=== PATIENT | female | born 1940 | race Two or more races ===

== ENCOUNTER 2017-11-14 18:41 | Inpatient (IN) | payer OTHER ==
[2017-11-14 20:10] LABS: BASO % 0.5 % (0-2.0); EOS % 0.2 % (0-4.5); LYMPH % 7.6 % (8-40); MCH 29.5 pg (25.7-33.7); MCHC 33.3 g/dl (32.0-36.0); MEAN CELL VOLUME 88.5 fl (80-96); MEAN PLT VOLUME 9.6 fl (7.5-11.1); MONO % 9.7 % (3.8-10.2); PLATELET COUNT 292 K/MM3 (134-434); RBC 4.75 M/mm3 (3.60-5.2); RDW 14.8 % (11.6-15.6); WHITE BLOOD COUNT 14.4 K/mm3 (4.0-10.0)
--- NOTE | 2017-11-14 20:15 | PDOC ---
History of Present Illness <Ivelisse Carbajal - Last Filed: 11/14/17 21:29> - General History Source: Patient Exam Limitations: No Limitations - History of Present Illness Initial Comments: 11/14/17 20:22 The patient is a 77 year old female with past medical history of hypertension, and _ who was brought to the ED by her daughters who presents with complaints of lethargy since this morning. The patients family reports the patient was at baseline yesterday, up walking around and very aware of her surroundings. Today the patient has been bed bound and complains of being very tired. The patients daughter also noticed the patient was having difficulty walking today as well, stating she was unsteady. She denies any fevers, chills, nausea, vomiting, diarrhea, cough, SOB, CP, or any urinary symptoms. The patient denies any focal neurological deficits. Allergies: NKDA PCP: Jo Francisco <Shahrzad Baires - Last Filed: 11/14/17 21:48> - General Chief Complaint: Weakness Stated Complaint: WEAKNESS Time Seen by Provider: 11/14/17 18:53 Past History - Past Medical History COPD: No HTN: Yes Hypercholesterolemia: Yes Other medical history: cataracts - Suicide/Smoking/Psychosocial Hx Smoking History: Never smoked Have you smoked in the past 12 months: No Information on smoking cessation initiated: No Hx Alcohol Use: No Drug/Substance Use Hx: No Substance Use Type: None <Ivelisse Carbajal - Last Filed: 11/14/17 21:29> <Shahrzad Baires - Last Filed: 11/14/17 21:48> - Past Medical History Allergies/Adverse Reactions: Allergies Allergy/AdvReac Type Severity Reaction Status Date / Time No Known Allergies Allergy Verified 11/14/17 19:13 Review of Systems - Review of Systems Able to Perform ROS?: Yes Comments:: 11/14/17 20:22 CONSTITUTIONAL: Present: weakness Absent: fever, chills, diaphoresis, loss of appetite HEENT: Absent: rhinorrhea, nasal congestion, throat pain, throat swelling, difficulty swallowing, mouth swelling, ear pain, eye pain, visual Changes CARDIOVASCULAR: Absent: chest pain, syncope, palpitations, irregular heart rate, lightheadedness , peripheral edema RESPIRATORY: Absent: cough, shortness of breath, dyspnea with exertion, orthopnea, wheezing, stridor, hemoptysis GASTROINTESTINAL: Absent: abdominal pain, abdominal distension, nausea, vomiting, diarrhea, constipation, melena, hematochezia GENITOURINARY: Absent: dysuria, frequency, urgency, hesitancy, hematuria, flank pain, genital pain MUSCULOSKELETAL: Absent: myalgia, arthralgia, joint swelling SKIN: Absent: rash, itching, pallor HEMATOLOGIC/IMMUNOLOGIC: Absent: easy bleeding, easy bruising, lymphadenopathy, frequent infections ENDOCRINE: Absent: unexplained weight gain, unexplained weight loss, heat intolerance, cold intolerance NEUROLOGIC: Presen: unsteady gait Absent: headache, focal weakness or paresthesias, dizziness, seizure, mental status changes, bladder or bowel incontinence PSYCHIATRIC: Absent: anxiety, depression, suicidal or homicidal ideation, hallucinations. All Other Systems: Reviewed and Negative <Shahrzad Baires - Last Filed: 11/14/17 21:48> *Physical Exam - Vital Signs Last Vital Signs Temp Pulse Resp BP Pulse Ox 97.8 F 96 H 18 112/74 96 11/14/17 18:41 11/14/17 18:41 11/14/17 18:41 11/14/17 18:41 11/14/17 19:29 <Ivelisse Carbajal - Last Filed: 11/14/17 21:29> - Vital Signs Last Vital Signs Temp Pulse Resp BP Pulse Ox 97.8 F 96 H 18 112/74 96 11/14/17 18:41 11/14/17 18:41 11/14/17 18:41 11/14/17 18:41 11/14/17 19:29 - Physical Exam Comments: 11/14/17 20:24 GENERAL: Well developed, well nourished. Awake and alert. No acute distress. HEENT: Normocephalic, atraumatic. PERRLA, EOMI. No conjunctival pallor. Sclera are non- icteric. Moist mucous membranes. Oropharynx is clear. NECK: Supple. Full ROM. No JVD. Carotid pulses 2+ and symmetric, without bruits. No thyromegaly. No lymphadenopathy. CARDIOVASCULAR: Regular rate and rhythm. No murmurs, rubs, or gallops. Distal pulses are 2+ and symmetric. PULMONARY: No evidence of respiratory distress. Lungs clear to auscultation bilaterally. No wheezing, rales or rhonchi. ABDOMINAL: Soft. Non-tender. Non-distended. No rebound or guarding. No organomegaly. Normoactive bowel sounds. MUSCULOSKELETAL Normal range of motion at all joints. No bony deformities or tenderness. No CVA tenderness. EXTREMITIES: No cyanosis. No clubbing. No edema. No calf tenderness. SKIN: Warm and dry. Normal capillary refill. No rashes. No jaundice. NEUROLOGICAL: Alert, awake, appropriate. Cranial nerves 2-12 intact. No deficits to light touch and temperature in face, upper extremities and lower extremities. No motor deficits in the in face, upper extremities and lower extremities. Normoreflexic in the upper and lower extremities. Normal speech. Toes are down-going bilaterally. Normal finger to nose. PSYCHIATRIC: Cooperative. Good eye contact. Appropriate mood and affect. <Shahrzad Baires - Last Filed: 11/14/17 21:48> ED Treatment Course - LABORATORY CBC & Chemistry Diagram: 11/14/17 19:58 11/14/17 20:30 - RADIOLOGY Radiology Studies Ordered: Category Date Time Status CHEST X-RAY PORTABLE* [RAD] Stat Radiology 11/14/17 19:29 Completed <Ivelisse Carbajal - Last Filed: 11/14/17 21:29> - LABORATORY CBC & Chemistry Diagram: 11/14/17 19:58 11/14/17 20:30 - ADDITIONAL ORDERS Additional order review: Laboratory Results 11/14/17 19:58 Blood Type Cancelled Antibody Screen Cancelled 11/14/17 19:58 RBC 4.75 MCV 88.5 MCHC 33.3 RDW 14.8 MPV 9.6 Neutrophils % 82.0 Lymphocytes % 7.6 L Monocytes % 9.7 Eosinophils % 0.2 Basophils % 0.5 - RADIOLOGY Radiograph Interpretation: 11/14/17 21:47 Chest Xray as reviewed by Dr. Sharpe reports peripheral upper lobe consolidative opacities compatible with pneumonia in the appropriate clinical setting. Neoplasia is not excluded. <Shahrzad Baires - Last Filed: 11/14/17 21:48> Medical Decision Making - Medical Decision Making 11/14/17 21:17 [address] call placed to Dr. Francisco, who called back promptly. Case was discussed. <Shahrzad Baires - Last Filed: 11/14/17 21:48> *DC/Admit/Observation/Transfer - Discharge Dispostion Admit: Yes <Ivelisse Carbajal - Last Filed: 11/14/17 21:29> - Attestations Scribe Attestion: 11/14/17 20:25 Documentation prepared by Shahzrad Baires, acting as medical office rep for Ivelisse Carbajal MD. <Shahrzad Baires - Last Filed: 11/14/17 21:48> Diagnosis at time of Disposition: Pneumonia Qualifiers: Pneumonia type: due to unspecified organism Laterality: left Lung location: unspecified part of lung Qualified Code(s): J18.9 - Pneumonia, unspecified organism - Referrals Referrals: Jo Francisco MD [Primary Care Provider] - - Patient Instructions - Post Discharge Activity
[2017-11-14] MEDS ORDERED: AZITHROMYCIN 500 MG TABLET PO STA (20:16)
[2017-11-14] MEDS ORDERED: CEFTRIAXONE 1,000 MG in DEXTROSE 5%-WATER - 50 ML IVPB STA (20:16)
[2017-11-14 20:22] LABS: INR 1.35 (0.82-1.09); PROTHROMBIN TIME (PATIENT) 15.2 SEC (9.98-11.88)
[2017-11-14] MEDS ORDERED: CEFTRIAXONE 1 GM/50 ML BAG ONE (20:39)
[2017-11-14] MEDS ORDERED: AZITHROMYCIN IVPB 250 ML IVPB ONE (20:39)
[2017-11-14] MEDS: SODIUM CHLORIDE 1,000 ML IV SCH (20:44)
[2017-11-14] MEDS ORDERED: AZITHROMYCIN 500 MG TABLET ONE (21:08)
[2017-11-14 21:09] LABS: ALBUMIN 3.5 g/dl (3.4-5.0); ANION GAP 10 (8-16); BLOOD UREA NITROGEN 13 mg/dL (7-18); CALCIUM 8.8 mg/dL (8.5-10.1); CHLORIDE 98 mmol/L (98-107); CO2 27 mmol/L (21-32); GLUCOSE,RANDOM 123 mg/dL (74-106); POTASSIUM 4.2 mmol/L (3.5-5.1); SGOT/AST 18 U/L (15-37); SGPT/ALT 11 U/L (12-78); SODIUM 135 mmol/L (136-145)
[2017-11-14 21:13] LABS: ALK PHOS 90 U/L (45-117); TOT PROT 8.2 g/dl (6.4-8.2)
[2017-11-14] MEDS ORDERED: DOCUSATE SODIUM 100 MG CAPSULE (FP) PO PRN (22:41)
--- NOTE | 2017-11-14 22:52 | HP ---
Admitting History and Physical - Admission Chief Complaint: lethargy/weakness History of Present Illness: The patient is a 77 year old female with past medical history of hypertension, and _ who was brought to the ED by her daughters who presents with complaints of lethargy since this morning. The patients family reports the patient was at baseline yesterday, up walking around and very aware of her surroundings. Today the patient has been bed bound and complains of being very tired. The patients daughter also noticed the patient was having difficulty walking today as well, stating she was unsteady. She denies any fevers, chills, nausea, vomiting, diarrhea, cough, SOB, CP, or any urinary symptoms. The patient denies any focal neurological deficits. Allergies: NKDA History Source: Patient, Family Member, Medical Record Limitations to Obtaining History: Clinical Condition - Past Medical History Reproductive: Yes: Postmenopausal Musculoskeletal: Yes: Osteoarthritis - Smoking History Smoking history: Never smoked Have you smoked in the past 12 months: No - Alcohol/Substance Use Hx Alcohol Use: No - Social History Usual Living Arrangement: Yes: With Child ADL: Family Assistance Home Medications - Allergies Allergies/Adverse Reactions: Allergies Allergy/AdvReac Type Severity Reaction Status Date / Time No Known Allergies Allergy Verified 11/14/17 19:13 - Home Medications Home Medications: Ambulatory Orders Unobtainable [Unobtainable] 11/15/17 Review of Systems - Review of Systems Constitutional: reports: No Symptoms. denies: Chills, Fever Eyes: reports: No Symptoms HENT: reports: No Symptoms Neck: reports: No Symptoms Cardiovascular: reports: No Symptoms Respiratory: reports: No Symptoms Gastrointestinal: reports: No Symptoms Genitourinary: reports: No Symptoms Breasts: reports: No Symptoms Reported Musculoskeletal: reports: No Symptoms Integumentary: reports: No Symptoms Neurological: reports: No Symptoms Endocrine: reports: No Symptoms Hematology/Lymphatic: reports: No Symptoms Psychiatric: reports: No Symptoms Physical Examination Vital Signs: Vital Signs Temperature 97.8 F 11/14/17 18:41 Pulse Rate 96 H 11/14/17 18:41 Respiratory Rate 18 11/14/17 18:41 Blood Pressure 112/74 11/14/17 18:41 O2 Sat by Pulse Oximetry (%) 96 11/14/17 19:29 Constitutional: Yes: Well Nourished Eyes: Yes: WNL HENT: Yes: WNL Neck: Yes: WNL Cardiovascular: Yes: WNL, Regular Rate and Rhythm Respiratory: Yes: CTA Bilaterally, Cough, Rhonchi (upper lobes) Gastrointestinal: Yes: WNL ...Rectal Exam: Yes: Deferred Breast(s): Yes: WNL Musculoskeletal: Yes: WNL Edema: No Peripheral Pulses WNL: Yes Integumentary: Yes: WNL Neurological: Yes: Alert, Oriented Psychiatric: Yes: Alert, Oriented Labs: CBC, BMP 11/14/17 19:58 11/14/17 20:30
[2017-11-15] MEDS ORDERED: ACETAMINOPHEN 325 MG TABLET (FP) ONE (00:32)
[2017-11-15] MEDS: ACETAMINOPHEN 325 MG TABLET (FP) PO PRN ×3 (00:33→16:32)
[2017-11-15 01:33] VITALS: BMI 27.8
[2017-11-15] MEDS: ALBUTEROL SO4 2.5/IPRATROPIUM 0.5 INH SOL 3 ML VIAL.NEB. NEB SCH ×3 (08:19→20:50)
[2017-11-15 08:26] LABS: HEMATOCRIT 37.3 % (32.4-45.2); HEMOGLOBIN 12.3 GM/dL (10.7-15.3); MCH 29.5 pg (25.7-33.7); MCHC 33.1 g/dl (32.0-36.0); MEAN CELL VOLUME 89.1 fl (80-96); MEAN PLT VOLUME 9.7 fl (7.5-11.1); PLATELET COUNT 222 K/MM3 (134-434); RBC 4.18 M/mm3 (3.60-5.2); RDW 14.5 % (11.6-15.6)
[2017-11-15 08:50] LABS: ANION GAP 10 (8-16); BLOOD UREA NITROGEN 12 mg/dL (7-18); CALCIUM 8.4 mg/dL (8.5-10.1); CHLORIDE 100 mmol/L (98-107); CO2 27 mmol/L (21-32); CREATININE 0.9 mg/dL (0.55-1.02); GLUCOSE,RANDOM 108 mg/dL (74-106); MAGNESIUM 1.8 mg/dL (1.8-2.4); PHOSPHOROUS 2.5 mg/dL (2.5-4.9); POTASSIUM 4.1 mmol/L (3.5-5.1); SODIUM 137 mmol/L (136-145)
[2017-11-15] MEDS: CEFTRIAXONE 1 G/50 ML PREMIX 50 ML IVPB SCH (09:37)
[2017-11-15] MEDS: SODIUM CHLORIDE 1,000 ML IV SCH ×2 (09:37→21:21)
[2017-11-15] MEDS: PANTOPRAZOLE 20 MG TABLET (FP) PO SCH (09:38)
[2017-11-15] MEDS ORDERED: PNEUMOC 13-VAL CONJ-DIP CRM/PF 0.5 ML DISP.SYRIN IM ONE (10:00)
--- NOTE | 2017-11-15 10:58 | EKG ---
Test Reason : Blood Pressure : / mmHG Vent. Rate : 096 BPM Atrial Rate : 096 BPM P-R Int : 128 ms QRS Dur : 074 ms QT Int : 316 ms P-R-T Axes : 042 -11 054 degrees QTc Int : 399 ms NORMAL SINUS RHYTHM WITH SINUS ARRHYTHMIA NONSPECIFIC ST AND T WAVE ABNORMALITY ABNORMAL ECG NO PREVIOUS ECGS AVAILABLE Confirmed by LOLA JACOME MD ([id number]) on 11/15/2017 10:58:09 AM Referred By: Confirmed By:LOLA JACOME MD
[2017-11-15] MEDS ORDERED: PT OWN MED DRAWER 7, Y5N ONE (11:13)
[2017-11-15] MEDS: AZITHROMYCIN IVPB 500 MG in DEXTROSE 5%-WATER - 250 ML IVPB SCH (12:00)
[2017-11-15 13:32] LABS: URINE APPEARANCE CLOUDY; URINE BILIRUBIN NEGATIVE (NEGATIVE); URINE BLOOD NEGATIVE (NEGATIVE); URINE COLOR AMBER; URINE GLUCOSE (UA) NEGATIVE (NEGATIVE); URINE KETONE TRACE (NEGATIVE); URINE NITRITE NEGATIVE (NEGATIVE); URINE UROBILINOGEN 4.0 E.U/dl mg/dL (0.2-1.0)
[2017-11-15 13:36] LABS: URINE LEUK ESTERASE 3+ (NEGATIVE); URINE PROTEIN 2+ (NEGATIVE)
[2017-11-15 13:39] LABS: EPI CELLS FEW /HPF (FEW); URINE BACTERIA MODERATE /hpf (NONE SEEN); URINE MUCUS MODERATE
[2017-11-15 13:58] LABS: URINE AMPHETAMINES NEGATIVE ng/ml (CUTOFF=500); URINE BARBITURATES NEGATIVE ng/ml (CUTOFF=200); URINE BENZODIAZEPINES NEGATIVE ng/ml (CUTOFF=200)
[2017-11-15 13:59] LABS: COCAINE, UR NEGATIVE ng/ml (CUTOFF=300); METHADONE, UR NEGATIVE ng/ml (CUTOFF=300); OPIATES, URI NEGATIVE ng/ml (CUTOFF=300); PHENCYCLIDINE,URINE NEGATIVE ng/ml (CUTOFF=25)
--- NOTE | 2017-11-15 21:29 | PN ---
Progress Note (short form) - Note Progress Note: seen and examined in bed family at bedside speech clear A A O x3 Vital Signs Period Temp Pulse Resp BP Sys/Richard Pulse Ox Last 24 Hr 99.3 F-102.3 F 82-102 18-18 109-149/51-90 95-98 neck supple heart regular S1/S2 lungs rhonchi left upper lobe otherwise clear abd soft non tender ext no edema /no calf tenderness CBC, BMP 11/15/17 07:10 11/15/17 07:20 CXR congestive changes Left lobe infiltrate Microbiology 11/14/17 20:30 Blood - Peripheral Venous Blood Culture - Preliminary NO GROWTH OBTAINED AFTER 24 HOURS, INCUBATION TO CONTINUE FOR 4 DAYS.follow up 11/14/17 20:30 Blood - Peripheral Venous Blood Culture - Preliminary NO GROWTH OBTAINED AFTER 24 HOURS, INCUBATION TO CONTINUE FOR 4 DAYS. Active Medications Acetaminophen (Tylenol -) 650 mg PO Q4H PRN PRN Reason: PAIN LEVEL 1-5 Last Admin: 11/15/17 16:32 Dose: 650 mg Albuterol/Ipratropium (Duoneb -) 1 amp NEB RTID [facility] Last Admin: 11/15/17 20:50 Dose: 1 amp Docusate Sodium (Colace -) 100 mg PO Q12H PRN PRN Reason: CONSTIPATION Sodium Chloride (Normal Saline -) 1,000 mls @ 42 mls/hr IV ASDIR [facility] Last Admin: 11/15/17 21:21 Dose: 42 mls/hr Azithromycin 500 mg/ Dextrose 250 mls @ 250 mls/hr IVPB DAILY [facility] Last Admin: 11/15/17 12:00 Dose: 250 mls/hr CEFTRIAXONE 1 G/50 ML PREMIX (Ceftriaxone 1 Gm-D5w Bag) 50 mls @ 200 mls/hr IVPB DAILY [facility] Last Admin: 11/15/17 09:37 Dose: 200 mls/hr Pantoprazole Sodium (Protonix -) 20 mg PO DAILY [facility] Last Admin: 11/15/17 09:38 Dose: 20 mg # PNA ABX / nebulizer repeat cxr folllow up CT once Tx completed # HTN monitor BP
[2017-11-16] MEDS: ACETAMINOPHEN 325 MG TABLET (FP) PO PRN ×2 (06:19→20:08)
[2017-11-16 07:23] LABS: HEMATOCRIT 37.8 % (32.4-45.2); HEMOGLOBIN 12.5 GM/dL (10.7-15.3); MCH 29.7 pg (25.7-33.7); MCHC 33.1 g/dl (32.0-36.0); MEAN CELL VOLUME 89.6 fl (80-96); MEAN PLT VOLUME 9.9 fl (7.5-11.1); PLATELET COUNT 243 K/MM3 (134-434); RBC 4.22 M/mm3 (3.60-5.2); WHITE BLOOD COUNT 9.2 K/mm3 (4.0-10.0)
[2017-11-16 08:19] LABS: ANION GAP 11 (8-16); BLOOD UREA NITROGEN 9 mg/dL (7-18); CALCIUM 8.2 mg/dL (8.5-10.1); CHLORIDE 99 mmol/L (98-107); CO2 26 mmol/L (21-32); CREATININE 0.9 mg/dL (0.55-1.02); GLUCOSE,RANDOM 112 mg/dL (74-106); POTASSIUM 4.1 mmol/L (3.5-5.1); SODIUM 136 mmol/L (136-145)
[2017-11-16] MEDS: ALBUTEROL SO4 2.5/IPRATROPIUM 0.5 INH SOL 3 ML VIAL.NEB. NEB SCH ×3 (08:30→20:13)
[2017-11-16] MEDS ORDERED: PT OWN MED DRAWER 7, Y5N ONE (10:19)
[2017-11-16] MEDS: PANTOPRAZOLE 20 MG TABLET (FP) PO SCH (10:22)
[2017-11-16] MEDS: SODIUM CHLORIDE 1,000 ML IV SCH ×2 (10:23→20:09)
[2017-11-16] MEDS: CEFTRIAXONE 1 G/50 ML PREMIX 50 ML IVPB SCH (10:23)
[2017-11-16] MEDS: AZITHROMYCIN IVPB 500 MG in DEXTROSE 5%-WATER - 250 ML IVPB SCH (10:23)
--- NOTE | 2017-11-16 11:27 | PN ---
Progress Note (short form) - Note Progress Note: 77 y/o female found lying in bed receiving Nebulizer treatment. Denies SOB and pain. Vital Signs Period Temp Pulse Resp BP Sys/Richard Pulse Ox Last 24 Hr 98.9 F-102.3 F 90-96 18-18 121-133/52-69 97 CBC, BMP 11/16/17 06:37 11/16/17 06:37 HEENT- NL Neck- supple Lungs- CTAB Heart- s1/s2 Abd- soft, NT, pos BS x 4 Ext- Neg LE edema Active Medications Acetaminophen (Tylenol -) 650 mg PO Q4H PRN PRN Reason: PAIN LEVEL 1-5 Last Admin: 11/16/17 06:19 Dose: 650 mg Albuterol/Ipratropium (Duoneb -) 1 amp NEB RTID [facility] Last Admin: 11/16/17 13:38 Dose: 1 amp Docusate Sodium (Colace -) 100 mg PO Q12H PRN PRN Reason: CONSTIPATION Sodium Chloride (Normal Saline -) 1,000 mls @ 42 mls/hr IV ASDIR [facility] Last Admin: 11/16/17 10:23 Dose: 42 mls/hr Azithromycin 500 mg/ Dextrose 250 mls @ 250 mls/hr IVPB DAILY [facility] Last Admin: 11/16/17 10:23 Dose: 250 mls/hr CEFTRIAXONE 1 G/50 ML PREMIX (Ceftriaxone 1 Gm-D5w Bag) 50 mls @ 200 mls/hr IVPB DAILY [facility] Last Admin: 11/16/17 10:23 Dose: 200 mls/hr Pantoprazole Sodium (Protonix -) 20 mg PO DAILY [facility] Last Admin: 11/16/17 10:22 Dose: 20 mg # PNA Cont IV ABX / nebulizer repeat cxr folllow up CT once # HTN BP stable #GERD Protonix 40 mg daily
--- NOTE | 2017-11-16 16:13 | PN ---
Progress Note (short form) - Note Progress Note: 77 y/o female found receiving Nebulizer treatment. Denies pain and discomfort. Vital Signs Period Temp Pulse Resp BP Sys/Richard Pulse Ox Last 24 Hr 98.8 F-102.3 F 88-96 18-18 121-133/52-68 97 CBC, BMP 11/16/17 06:37 11/16/17 06:37 HEENT- NL Neck-supple Lungs- CTAB Heart- s1/s2 Abd- soft, NT Ext-No LE edema Active Medications Acetaminophen (Tylenol -) 650 mg PO Q4H PRN PRN Reason: PAIN LEVEL 1-5 Last Admin: 11/16/17 06:19 Dose: 650 mg Albuterol/Ipratropium (Duoneb -) 1 amp NEB RTID [facility] Last Admin: 11/16/17 13:38 Dose: 1 amp Docusate Sodium (Colace -) 100 mg PO Q12H PRN PRN Reason: CONSTIPATION Sodium Chloride (Normal Saline -) 1,000 mls @ 42 mls/hr IV ASDIR [facility] Last Admin: 11/16/17 10:23 Dose: 42 mls/hr Azithromycin 500 mg/ Dextrose 250 mls @ 250 mls/hr IVPB DAILY [facility] Last Admin: 11/16/17 10:23 Dose: 250 mls/hr CEFTRIAXONE 1 G/50 ML PREMIX (Ceftriaxone 1 Gm-D5w Bag) 50 mls @ 200 mls/hr IVPB DAILY [facility] Last Admin: 11/16/17 10:23 Dose: 200 mls/hr Pantoprazole Sodium (Protonix -) 20 mg PO DAILY [facility] Last Admin: 11/16/17 10:22 Dose: 20 mg
[2017-11-17] MEDS: ALBUTEROL SO4 2.5/IPRATROPIUM 0.5 INH SOL 3 ML VIAL.NEB. NEB SCH ×3 (07:45→20:20)
[2017-11-17 08:27] LABS: BASO % 0.6 % (0-2.0); EOS % 4.6 % (0-4.5); HEMATOCRIT 35.6 % (32.4-45.2); HEMOGLOBIN 11.9 GM/dL (10.7-15.3); MCH 29.8 pg (25.7-33.7); MCHC 33.4 g/dl (32.0-36.0); MEAN CELL VOLUME 89.2 fl (80-96); MEAN PLT VOLUME 9.2 fl (7.5-11.1); MONO % 12.3 % (3.8-10.2); NEUT % 60.5 % (42.8-82.8); PLATELET COUNT 224 K/MM3 (134-434); RBC 3.99 M/mm3 (3.60-5.2); RDW 14.5 % (11.6-15.6); WHITE BLOOD COUNT 6.9 K/mm3 (4.0-10.0)
[2017-11-17 08:55] LABS: ANION GAP 8 (8-16); BLOOD UREA NITROGEN 6 mg/dL (7-18); CALCIUM 8.2 mg/dL (8.5-10.1); CHLORIDE 103 mmol/L (98-107); CO2 28 mmol/L (21-32); GLUCOSE,RANDOM 96 mg/dL (74-106); POTASSIUM 3.9 mmol/L (3.5-5.1); SODIUM 139 mmol/L (136-145)
[2017-11-17 08:57] LABS: CREATININE 0.6 mg/dL (0.55-1.02)
[2017-11-17] MEDS: SODIUM CHLORIDE 1,000 ML IV SCH ×2 (09:00→20:36)
[2017-11-17] MEDS: CEFTRIAXONE 1 G/50 ML PREMIX 50 ML IVPB SCH (09:09)
[2017-11-17] MEDS: PANTOPRAZOLE 20 MG TABLET (FP) PO SCH (09:09)
[2017-11-17] MEDS ORDERED: PT OWN MED DRAWER 7, Y5N ONE (09:56)
--- NOTE | 2017-11-17 11:39 | PN ---
Progress Note (short form) - Note Progress Note: seen and examined in bed low grade temp over night states general body aches chills yesterday Vital Signs Period Temp Pulse Resp BP Sys/Richard Pulse Ox Last 24 Hr 97.7 F-101.2 F 72-99 16-18 130-146/59-99 96 Neck- supple Lungs- crackles left upper / middle lobe otherwise clear no wheezing / no rales Heart- s1/s2 Abd- soft, NT, pos BS x 4 Ext- Neg LE edema CBC, BMP 11/17/17 07:30 11/17/17 07:30 CXR radiological improvement Microbiology 11/14/17 20:30 Blood - Peripheral Venous Blood Culture - Preliminary NO GROWTH OBTAINED AFTER 48 HOURS, INCUBATION TO CONTINUE FOR 3 DAYS. 11/14/17 20:30 Blood - Peripheral Venous Blood Culture - Preliminary NO GROWTH OBTAINED AFTER 48 HOURS, INCUBATION TO CONTINUE FOR 3 DAYS. Active Medications Acetaminophen (Tylenol -) 650 mg PO Q4H PRN PRN Reason: PAIN LEVEL 1-5 Last Admin: 11/16/17 20:08 Dose: 650 mg Albuterol/Ipratropium (Duoneb -) 1 amp NEB RTID [facility] Last Admin: 11/17/17 07:45 Dose: 1 amp Docusate Sodium (Colace -) 100 mg PO Q12H PRN PRN Reason: CONSTIPATION Sodium Chloride (Normal Saline -) 1,000 mls @ 42 mls/hr IV ASDIR [facility] Last Admin: 11/17/17 09:00 Dose: 42 mls/hr Azithromycin 500 mg/ Dextrose 250 mls @ 250 mls/hr IVPB DAILY [facility] Last Admin: 11/16/17 10:23 Dose: 250 mls/hr CEFTRIAXONE 1 G/50 ML PREMIX (Ceftriaxone 1 Gm-D5w Bag) 50 mls @ 200 mls/hr IVPB DAILY [facility] Last Admin: 11/17/17 09:09 Dose: 200 mls/hr Pantoprazole Sodium (Protonix -) 20 mg PO DAILY [facility] Last Admin: 11/17/17 09:09 Dose: 20 mg # PNA Cont IV ABX / nebulizer repeat cxr folllow up CT once treatment completed will do as out patient # HTN BP stable #GERD Protonix 40 mg daily
[2017-11-17] MEDS: ACETAMINOPHEN 325 MG TABLET (FP) PO SCH ×3 (12:10→23:10)
[2017-11-17] MEDS: AZITHROMYCIN IVPB 500 MG in DEXTROSE 5%-WATER - 250 ML IVPB SCH (12:10)
[2017-11-18] MEDS: ACETAMINOPHEN 325 MG TABLET (FP) PO SCH ×4 (06:17→23:06)
[2017-11-18] MEDS: ALBUTEROL SO4 2.5/IPRATROPIUM 0.5 INH SOL 3 ML VIAL.NEB. NEB SCH ×3 (07:20→20:00)
[2017-11-18] MEDS: PANTOPRAZOLE 20 MG TABLET (FP) PO SCH (11:43)
[2017-11-18] MEDS: CEFTRIAXONE 1 G/50 ML PREMIX 50 ML IVPB SCH (11:44)
[2017-11-18] MEDS: AZITHROMYCIN IVPB 500 MG in DEXTROSE 5%-WATER - 250 ML IVPB SCH (11:44)
[2017-11-18] MEDS: SODIUM CHLORIDE 1,000 ML IV SCH ×2 (11:47→20:57)
--- NOTE | 2017-11-18 13:47 | PN ---
Progress Note (short form) - Note Progress Note: seen and examined in bed no fever or chills c/o coughing less body aches Vital Signs Period Temp Pulse Resp BP Sys/Richard Pulse Ox Last 24 Hr 98.3 F-98.7 F 81-84 18-20 129-153/72-97 98 Neck- supple Lungs- minimal crackles left base/ no wheezing / no rales Heart- s1/s2 Abd- soft, NT, pos BS x 4 Ext- Neg LE edema CBC, BMP 11/17/17 07:30 11/17/17 07:30 CXR AP & Lat radiological improvement Microbiology 11/14/17 20:30 Blood - Peripheral Venous Blood Culture - Preliminary NO GROWTH OBTAINED AFTER 72 HOURS, INCUBATION TO CONTINUE FOR 2 DAYS. 11/14/17 20:30 Blood - Peripheral Venous Blood Culture - Preliminary NO GROWTH OBTAINED AFTER 72 HOURS, INCUBATION TO CONTINUE FOR 2 DAYS. Active Medications Acetaminophen (Tylenol -) 650 mg PO Q4H PRN PRN Reason: PAIN LEVEL 1-5 Last Admin: 11/16/17 20:08 Dose: 650 mg Acetaminophen (Tylenol -) 650 mg PO Q6HPO [facility] Last Admin: 11/18/17 11:43 Dose: 650 mg Albuterol/Ipratropium (Duoneb -) 1 amp NEB RTID [facility] Last Admin: 11/18/17 07:20 Dose: 1 amp Docusate Sodium (Colace -) 100 mg PO Q12H PRN PRN Reason: CONSTIPATION Sodium Chloride (Normal Saline -) 1,000 mls @ 42 mls/hr IV ASDIR [facility] Last Admin: 11/18/17 11:47 Dose: 42 mls/hr Azithromycin 500 mg/ Dextrose 250 mls @ 250 mls/hr IVPB DAILY [facility] Last Admin: 11/18/17 11:44 Dose: 250 mls/hr CEFTRIAXONE 1 G/50 ML PREMIX (Ceftriaxone 1 Gm-D5w Bag) 50 mls @ 200 mls/hr IVPB DAILY [facility] Last Admin: 11/18/17 11:44 Dose: 200 mls/hr Pantoprazole Sodium (Protonix -) 20 mg PO DAILY [facility] Last Admin: 11/18/17 11:43 Dose: 20 mg # PNA Cont IV ABX / nebulizer repeat cxr shows improvement folllow up CT once treatment completed will do as out patient # HTN BP stable #GERD Protonix 40 mg daily Probable d/c in am
[2017-11-19] MEDS: ACETAMINOPHEN 325 MG TABLET (FP) PO SCH ×2 (06:24→12:25)
[2017-11-19 07:35] VITALS: BP 149/94; PULSE 88; TEMP 99.5
[2017-11-19] MEDS: ALBUTEROL SO4 2.5/IPRATROPIUM 0.5 INH SOL 3 ML VIAL.NEB. NEB SCH ×2 (07:49→13:58)
[2017-11-19 08:24] LABS: ANION GAP 11 (8-16); BLOOD UREA NITROGEN 5 mg/dL (7-18); CALCIUM 8.6 mg/dL (8.5-10.1); CHLORIDE 105 mmol/L (98-107); CO2 27 mmol/L (21-32); CREATININE 0.5 mg/dL (0.55-1.02); GLUCOSE,RANDOM 89 mg/dL (74-106); POTASSIUM 3.7 mmol/L (3.5-5.1); SODIUM 143 mmol/L (136-145)
[2017-11-19] MEDS ORDERED: PT OWN MED DRAWER 7, Y5N ONE ×2 (09:29→14:48)
[2017-11-19] MEDS: AZITHROMYCIN IVPB 500 MG in DEXTROSE 5%-WATER - 250 ML IVPB SCH (09:38)
[2017-11-19] MEDS: CEFTRIAXONE 1 G/50 ML PREMIX 50 ML IVPB SCH (09:39)
[2017-11-19] MEDS: PANTOPRAZOLE 20 MG TABLET (FP) PO SCH (09:39)
[2017-11-19] MEDS: SODIUM CHLORIDE 1,000 ML IV SCH (09:41)
--- NOTE | 2017-11-19 14:09 | DS ---
Physical Examination Vital Signs: Vital Signs Temperature 99.5 F 11/19/17 07:00 Pulse Rate 88 11/19/17 07:00 Respiratory Rate 20 11/19/17 09:00 Blood Pressure 149/94 11/19/17 07:00 O2 Sat by Pulse Oximetry (%) 94 L 11/19/17 09:00 Findings/Remarks: The patient is a 77 year old female with PMH of HTN, and _ who was brought to the ED by her daughters who presents with complaints of lethargy since morning of admission. The patients family reports the patient was at baseline day prior to admission, up walking around and very aware of her surroundings. Day of admission the patient had been bed bound and complaining of being very tired. The patients daughter also noticed the patient was having difficulty walking as well, stating she was unsteady. She denied any fevers, chills, nausea, vomiting, diarrhea, cough, SOB, CP, or any urinary symptoms. No neurological deficits noted by family or documented on ER evaluation. She was found to have LLL infiltrate on CXR Patient was treated for CAP, with adequate response. Case has been discussed with family ( daughter ) at time of admission and at time of discharge. Constitutional: Yes: Well Nourished, No Distress, Calm Eyes: Yes: WNL, Conjunctiva Clear, EOM Intact HENT: Yes: Atraumatic, Normocephalic Neck: Yes: Supple, Trachea Midline Cardiovascular: Yes: Regular Rate and Rhythm Respiratory: Yes: CTA Bilaterally Gastrointestinal: Yes: Normal Bowel Sounds, Soft ...Rectal Exam: Yes: Deferred Renal/: Yes: WNL Musculoskeletal: Yes: WNL Extremities: Yes: WNL Edema: No Peripheral Pulses WNL: Yes Integumentary: Yes: WNL Neurological: Yes: Alert, Oriented ...Motor Strength: WNL Psychiatric: Yes: Alert, Oriented Labs: CBC, BMP 11/17/17 07:30 11/19/17 07:05 Discharge Summary Reason For Visit: PNEUMONIA Current Active Problems GERD (gastroesophageal reflux disease) (Acute) Pneumonia (Acute) Condition: Good - Instructions Referrals: Jo Francisco MD [Primary Care Provider] - Disposition: HOME - Home Medications Comprehensive Discharge Medication List: Ambulatory Orders Zithromax 250 mg q day for 3 days
== END 2017-11-19 14:57 | disposition home or self-care (01) | DRG 194 ==
LOC: JER 18:41 → JERBED 21:29 → J5S 11-15 01:00
PROVIDERS: ADMIT Family Medicine; ATTEND Family Medicine
DX: J18.9 Pneumonia, unspecified organism (principal); N39.0 Urinary tract infection, site not specified; K21.9 Gastro-esophageal reflux disease without esophagitis; I10 Essential (primary) hypertension
CPT/HCPCS: 36415; 71045-TC-FY; 71046-TC-FY; 80048; 80053; 80307; 81003; 81015; 82550; 83735; 84100; 84484; 85025; 85027; 85610; 86850; 86900; 86901; 87040; 90670; 93005; 93010; 94640; 97116-GP; 97161-GP; 99284-25